=== PATIENT | male | born 1975 | race Asian ===

== ENCOUNTER 2019-01-10 13:32 | Emergency (ER) | payer BC ==
--- NOTE | 2019-01-10 14:43 | RADIOLOGY REPORT (SQ) ---
EXAM DESCRIPTION: CHEST 2 VIEWS COMPLETED DATE/TIME: 01/10/2019 2:35 pm REASON FOR STUDY: palpitations COMPARISON: None. EXAM PARAMETERS: NUMBER OF VIEWS: two views TECHNIQUE: Digital Frontal and Lateral radiographic views of the chest acquired. RADIATION DOSE: NA LIMITATIONS: none FINDINGS: LUNGS AND PLEURA: No opacities, masses or pneumothorax. No pleural effusion. MEDIASTINUM AND HILAR STRUCTURES: No masses or contour abnormalities. HEART AND VASCULAR STRUCTURES: Heart normal size. No evidence for failure. BONES: No acute findings. HARDWARE: None in the chest. OTHER: No other significant finding. IMPRESSION: 1. NO ACUTE RADIOGRAPHIC FINDING IN THE CHEST. TECHNICAL DOCUMENTATION: JOB ID: [id number] [email or web address]- All Rights Reserved Reading location - IP/workstation name: [email or web address]
[2019-01-10 14:52] LABS: ANION GAP 13 (5-19); BLOOD UREA NITROGEN 15 mg/dL (7-20); CALCIUM 9.7 mg/dL (8.4-10.2); CARBON DIOXIDE 26 mmol/L (22-30); CHLORIDE 104 mmol/L (98-107); GLUCOSE 175 mg/dL (75-110); SODIUM 142.8 mmol/L (137-145)
[2019-01-10] MEDS ORDERED: RINGERS SOLUTION,LACTATED 1,000 ML IV ONE (15:05)
--- NOTE | 2019-01-10 15:16 | ER Document Report ---
ED General - General Chief Complaint: Palpitations Stated Complaint: FEELS LIKE HEART IS "RACING" Time Seen by Provider: 01/10/19 14:14 Primary Care Provider: CASSANDRA GARNER FNP [Primary Care Provider] - Follow up as needed Mode of Arrival: Ambulatory Information source: Patient, Relative, [facility] Records Notes: 43-year-old male with hyperlipidemia presents with complaint of palpitations that started 3 days prior to arrival. He describes them as intermittent, not associated with chest pain. He states occasionally he does feel short of breath with this but this started after he developed a cough. Patient denies prior similar symptoms, changes in medication, supplements, energy drinks. Patient currently only takes atorvastatin and vitamin D. He does complain of fatigue and a dry cough. He does admit to vaping nicotine. Patient denies leg swelling, recent travel, recent surgery, history of cancer, previous history of PE, DVT. TRAVEL OUTSIDE OF THE [place] IN LAST 30 DAYS: No - HPI Onset: Last week Onset/Duration: Intermittent Quality of pain: No pain Severity: None Associated symptoms: Nonproductive cough, Shortness of breath, Other - Palpitations, fatigue. denies: Chest pain, Fever, Headache, Hurts to breath, Nausea, Vomiting - Related Data Allergies/Adverse Reactions: No Known Allergies Allergy (Unverified 01/10/19 13:34) Past Medical History - General Information source: Patient, Relative, [facility] Records - Social History Smoking Status: Current Every Day Smoker Cigarette use (# per day): No - Patient vapes nicotine Chew tobacco use (# tins/day): No Smoking Education Provided: Yes - Smoking cessation counseling was provided for 4 minutes at the bedside Frequency of alcohol use: Rare Drug Abuse: None Lives with: Family Family History: Reviewed & Not Pertinent Patient has suicidal ideation: No Patient has homicidal ideation: No - Past Medical History Cardiac Medical History: Reports: Hx Hypercholesterolemia Renal/ Medical History: Denies: Hx Peritoneal Dialysis Past Surgical History: Reports: Hx Orthopedic Surgery Review of Systems - Review of Systems Notes: REVIEW OF SYSTEMS: CONSTITUTIONAL : Denies fever, chills, or sweats. Denies recent illness. Denies weight loss, recent hospitalizations. EENT: Denies visual changes, eye pain. Denies sore throat, oral lesions, difficulty swallowing. CARDIOVASCULAR: Denies chest pain. Denies lower extremity edema. RESPIRATORY: Denies shortness of breath, wheezing. GASTROINTESTINAL: Denies abdominal pain or distention. Denies nausea, vomiting, or diarrhea. Denies blood in vomitus, stools, or per rectum. Denies black, tarry stools. Denies constipation. GENITOURINARY: Denies difficulty urinating, painful urination, frequency, blood in urine, testicular pain or penile discharge. MUSCULOSKELETAL: Denies back or neck pain or stiffness. Denies joint pain or swelling. SKIN: Denies rash, lesions or sores. HEMATOLOGIC : Denies easy bruising or bleeding. LYMPHATIC: Denies swollen glands. NEUROLOGICAL: Denies confusion or altered mental status. Denies loss of consciousness. Denies dizziness or lightheadedness. Denies headache. Denies weakness or paralysis. Denies problems difficulty with ambulation, slurred speech. Denies sensory loss, numbness, or tingling. Denies seizures. PSYCHIATRIC: Denies anxiety or stress. Denies depression, suicidal ideation, or Physical Exam - Vital signs Vitals: Resp Pulse Ox 17 96 01/10/19 13:58 01/10/19 13:58 - Notes Notes: PHYSICAL EXAMINATION: GENERAL: Well-appearing, well-nourished and in no acute distress. HEAD: Atraumatic, normocephalic. EYES: Pupils equal round and reactive to light, extraocular movements intact, sclera anicteric, conjunctiva are normal. ENT: Nares patent, oropharynx clear without exudates. Moist mucous membranes. NECK: Normal range of motion, supple without lymphadenopathy LUNGS: Breath sounds clear to auscultation bilaterally and equal. No wheezes rales or rhonchi. HEART: Regular rate and rhythm without murmurs ABDOMEN: Soft, nontender, nondistended abdomen. No guarding, no rebound. No masses appreciated. Musculoskeletal: Normal range of motion, no pitting or edema. No cyanosis. NEUROLOGICAL: Cranial nerves grossly intact. Normal speech, normal gait. Normal sensory, motor exams PSYCH: Normal mood, normal affect. SKIN: Warm, Dry, normal turgor, no rashes or lesions noted. Course - Re-evaluation Re-evalutation: Laboratory 01/10/19 01/10/19 01/10/19 14:07 14:07 14:07 D-Dimer < 0.27 Sodium 142.8 Potassium 4.0 Chloride 104 Carbon Dioxide 26 Anion Gap 13 BUN 15 Creatinine 0.71 Est GFR ( Amer) > 60 Est GFR (Non-Af Amer) > 60 Glucose 175 H Calcium 9.7 Magnesium 1.9 TSH 2.36 Free T4 0.68 L Free T3 pg/mL 3.60 Urine Color Urine Appearance Urine pH Ur Specific [place] Urine Protein Urine Glucose (UA) Urine Ketones Urine Blood Urine Nitrite Urine Bilirubin Urine Urobilinogen Ur Leukocyte Esterase Urine WBC (Auto) Squamous Epi Cells Auto Urine Mucus (Auto) Urine Ascorbic Acid Urine Opiates Screen Urine Methadone Screen Ur Barbiturates Screen Ur Phencyclidine Scrn Ur Amphetamines Screen U Benzodiazepines Scrn Urine Cocaine Screen U Marijuana (THC) Screen 01/10/19 01/10/19 15:48 15:48 D-Dimer Sodium Potassium Chloride Carbon Dioxide Anion Gap BUN Creatinine Est GFR ( Amer) Est GFR (Non-Af Amer) Glucose Calcium Magnesium TSH Free T4 Free T3 pg/mL Urine Color YELLOW Urine Appearance CLEAR Urine pH 5.0 Ur Specific [place] 1.018 Urine Protein NEGATIVE Urine Glucose (UA) NEGATIVE Urine Ketones NEGATIVE Urine Blood NEGATIVE Urine Nitrite NEGATIVE Urine Bilirubin NEGATIVE Urine Urobilinogen NEGATIVE Ur Leukocyte Esterase NEGATIVE Urine WBC (Auto) 0 Squamous Epi Cells Auto <1 Urine Mucus (Auto) RARE Urine Ascorbic Acid NEGATIVE Urine Opiates Screen NEGATIVE Urine Methadone Screen NEGATIVE Ur Barbiturates Screen NEGATIVE Ur Phencyclidine Scrn NEGATIVE Ur Amphetamines Screen NEGATIVE U Benzodiazepines Scrn NEGATIVE Urine Cocaine Screen NEGATIVE U Marijuana (THC) Screen NEGATIVE Chest X-Ray 01/10/19 14:14 IMPRESSION: 1. NO ACUTE RADIOGRAPHIC FINDING IN THE CHEST. Temp Pulse Resp BP Pulse Ox 98 F 19 105/95 H 98 01/10/19 17:47 01/10/19 17:47 01/10/19 17:47 01/10/19 17:47 01/10/19 15:15 43-year-old male presents with 3 days of intermittent palpitations, dry cough. Upon my exam patient's heart rate is 81 on the studio technician. EKG was obtained which does show the patient to be in sinus tachycardia with a rate of 125. QTC is 491 QRS is 100. Patient does have PVCs. Repeat EKG was obtained and showed the patient to be in normal sinus rhythm at a rate of 81. CMP, magn esium, d-dimer, thyroid are within normal limits. Chest x-ray shows no evidence of infection, cardiomegaly, pleural effusion. Patient has no associated shortness of breath or chest pain. He was reevaluated multiple times and remains with a normal heart rate well-appearing, alert and oriented. 01/10/19 16:46 Patient reevaluated. He is resting comfortably. Current heart rate is 92. Blood pressure 125/83. I explained to the patient that he may require a Holter monitor that can be set up with his primary care physician. Patient and reassured. Smoking cessation was advised. Patient was discharged home with copies of all of his blood work that was performed today. Patient was evaluated and treated as appropriate for the patient's presenting symptoms and complaint, with consideration of any critical or life threatening conditions that may be associated with their obtained history and exam as noted above. All results were discussed with patient. Patient provided the opportunity to ask questions, and express concerns. Patient was educated on treatments based on their presumed diagnosis as noted above. At this time we will discharge the patient with return precautions and follow-up recommendations. Verbal discharge instructions given a the bedside. Medication warnings reviewed. Patient is in agreement with this plan and has verbalized understanding of return precautions. After careful consideration I feel that that patient can be safely discharged from the emergency department, they were advised to followup with a primary care physician in 2-3 days. Dictation on this chart was performed using voice recognition software and may result in unintended grammatical, spelling, syntax or errors. 01/11/19 00:57 - Vital Signs Vital signs: Temp Pulse Resp BP Pulse Ox 98 F 19 105/95 H 98 01/10/19 17:47 01/10/19 17:47 01/10/19 17:47 01/10/19 17:47 - Laboratory Result Diagrams: 01/10/19 14:07 Laboratory results interpreted by me: 01/10/19 01/10/19 14:07 14:07 Glucose 175 H Free T4 0.68 L - Diagnostic Test Radiology reviewed: Image reviewed, Reports reviewed - EKG Interpretation by Me EKG shows normal: Sinus rhythm Rate: Normal Rhythm: NSR When compared to previous EKG there are: Previous EKG unavailable Discharge - Discharge Clinical Impression: Heart palpitations Condition: Good Disposition: HOME, SELF-CARE Instructions: Palpitations (Irregular or Rapid Heartrate) ([facility]) Additional Instructions: Follow up with your [id number] hours for further care or return to the ED IMMEDIATELY if symptoms worsen or you have any concerns. If you cannot afford to follow up with your primary care physician a list of low cost clinics have been provided at the end of your discharge papers as well. Most prescribed medications have multiple side effects. The safest thing to do is when filling your prescription speak to your pharmacist regarding possible interactions with your normal home medications and over the counter medications such as Ibuprofen, Tylenol, Benadryl. If you experience any symptoms that cause you discomfort or concern you should discontinue the medication immediately and return to the emergency room or call your primary care physician. Forms: Smoking Cessation Education Referrals: CASSANDRA GARNER FNP [Primary Care Provider] - Follow up as needed
[2019-01-10 16:06] LABS: APPEARANCE,URINE CLEAR; BILIRUBIN,URINE NEGATIVE (NEGATIVE); COLOR,URINE YELLOW; GLUCOSE, URINE NEGATIVE (NEGATIVE); KETONES,URINE NEGATIVE (NEGATIVE); LEUKOCYTE ESTERASE,URINE NEGATIVE (NEGATIVE); NITRITE,URINE NEGATIVE (NEGATIVE); PROTEIN,URINE NEGATIVE (NEGATIVE); URINE SPECIFIC GRAVITY 1.018; UROBILINOGEN,URINE NEGATIVE mg/dL (<2.0)
[2019-01-10 16:25] LABS: URINE AMPHETAMINES SCREEN NEGATIVE; URINE BARBITURATES SCREEN NEGATIVE; URINE BENZODIAZEPINES SCREEN NEGATIVE; URINE COCAINE SCREEN NEGATIVE; URINE MARIJUANA (THC) SCREEN NEGATIVE; URINE METHADONE SCREEN NEGATIVE; URINE PHENCYCLIDINE SCREEN NEGATIVE
[2019-01-10 17:02] LABS: FREE T3 3.6 pg/mL (2.77-5.27); FREE T4 (FREE THYROXINE) 0.68 ng/dL (0.78-2.19)
[2019-01-10 17:16] LABS: THYROID STIMULATING HORMONE 2.36 uIU/mL (0.47-4.68)
[2019-01-10 18:09] VITALS: BP 105/95
--- NOTE | 2019-01-10 21:46 | EKG REPORT ---
SEVERITY:- NORMAL ECG - SINUS RHYTHM : Confirmed by: Lorraine Willett MD 10-Jan-2019 21:46:01
--- NOTE | 2019-01-10 21:47 | EKG REPORT ---
SEVERITY:- OTHERWISE NORMAL ECG - SINUS TACHYCARDIA ATRIAL PREMATURE COMPLEX VENTRICULAR PREMATURE COMPLEX : Confirmed by: Lorraine Willett MD 10-Jan-2019 21:46:54
== END 2019-01-10 17:52 | disposition home or self-care (01) ==
LOC: ER 13:32
DX: R00.2 Palpitations (principal); R06.02 Shortness of breath; R53.83 Other fatigue; R05 Cough; F17.200 Nicotine dependence, unspecified, uncomplicated; E78.00 Pure hypercholesterolemia, unspecified
CPT/HCPCS: 93005; 99406; 99285; 96360; 36415; 84439; 83735; 84443; 80048; 81001; 80307; 84481; 85379; 71046; 93010; J7120